=== PATIENT | female | born 1990 | race Caucasian/White ===

== ENCOUNTER 2024-03-31 01:23 | Emergency (ER) | payer BC, SELFPAY ==
[2024-03-31 01:34] VITALS: BP 124/74; PULSE 67; O2SAT 100
[2024-03-31 01:36] VITALS: BP 109/77; PULSE 67; RESP 12; TEMP 36.5; O2SAT 100; BMI 23.1
--- NOTE | 2024-03-31 01:46 | PC.NURSE ---
Pt a&ox2, no signs of distress. Pt reports drinking earlier Pt denies head pain family at bedside Pts face cleaned up from dried up blood coming from lip Pt requested and given ice chips Plan of care ongoing
--- NOTE | 2024-03-31 03:08 | ED.ALCOHOL ---
HPI - Alcohol General Chief Complaint: ETOH/Substance Use Stated Complaint: FALL/HEAD STRIKE/ ETOH Time Seen by Provider: 03/31/24 03:02 Source: patient, family and EMS Mode of arrival: EMS Limitations: no limitations History of Present Illness ED Provider: Dr. Rodriguez HPI narrative: Patient is a 33yo female who has not medical problems, she went out tonight and had too much to drink. She started vomiting at home and then rolled out of the bed cutting her lip on the bedpost, she is up to date with her tetanous Related Data Allergies Allergy/AdvReac Type Severity Reaction Status Date / Time Sulfa (Sulfonamide Allergy Unknown Unknown Verified 03/31/24 01:40 Antibiotics) Review of Systems Review of Systems: Yes all other systems are reviewed and are negative Neurologic: Denies Sensory deficit (Neuro) [facility] Social History Social History Alcohol intake: current Smoked in Last 30 Days: Yes Use of substances other than those prescribed or required for medical reasons: Yes Substance Use Type: Marijuana Advance Directives: No Advance Directives Information Provided: Yes Physical Exam ED Vital Signs: Vital Signs - 24 hr 03/31/24 01:36 Temperature 97.7 F Pulse Rate 67 Respiratory Rate 12 Blood Pressure 109/77 Pulse Oximetry 100 Oxygen Delivery Method Room Air BMI result Body Mass Index 23.1 Const Other: intoxicated female General: healthy appearing Nutritional Appearance: average body habitus Orientation/consciousness: oriented to person and patient oriented x3 Limitations: no limitations HENMT Other: left lower lip with ecchymosis and small laceration Head: Yes normal to inspection Ears: external ears normal General nose exam: Normal external nose present Mouth: oropharynx normal Throat: Yes posterior oropharynx normal Eyes General: appearance normal, both eyes and all related structures Neck Neck: Yes normal visual inspection Chest Chest palpation & inspection: normal inspection of the chest Resp Auscultation: clear to auscultation bilaterally Cardio Jugular venous distension: no JVD Rate: regular rate Rhythm: regular rhythm Heart sounds: S1 normal heart sound present and S2 normal heart sound present GI Inspection: Yes normal to inspection Palpation (GI): Soft to palpation, nontender and No hepatosplenomegaly present Auscultation: normal bowel sounds General: Yes no CVA tenderness Back/Spine/Pelvis Back: no CVA tenderness Skin General skin exam: no rashes or lesions noted Neuro General: oriented to person and patient oriented x3 Cranial nerves: Yes CN's II-XII intact bilaterally Motor exam (neuro): 5/5 motor strength present throughout Sensory Exam: No Sensory deficit (Neuro) Extrem General: Yes normal to inspection Psych Appearance: grossly normal Course Reevaluation(s) Reevaluation #1: intoxicated, lip ecchymosis, laceration. Laceration is small on the mucosal surface will not suture. Time: 03:12 Medical Decision Making Differential Diagnosis Differential Diagnoses: The differential diagnosis associated with the presentation includes (alcohol intoxication, lip laceration, lip ecchymosis, head injury) Independent Historian Clinical information obtained from an independent historian. History obtained from or confirmed by: Spouse Tests considered The following testing was considered but not selected: CT of brain and cervical spine: patient looking well alert and oriented but still intoxicated, injury minor Discharge Plan Discharge Clinical Impression: Alcoholic intoxication, Laceration of lip Patient Disposition: Home, Self-Care Instructions: Alcohol Intoxication (ED), Abuse of Alcohol (ED), Laceration Without Closure (ED), Facial Laceration (ED) Additional Instructions: salt water gargles 4 times a day for 5 days Referrals: Physician,Unknown J [Primary Care Provider] - 3 days Print Language: Lithuanian
[2024-03-31 03:25] VITALS: BP 109/77; PULSE 67; RESP 12; TEMP 36.5
== END 2024-03-31 03:27 | disposition home or self-care (01) ==
PROVIDERS: Emergency Provider Emergency Medicine
DX: S01.511A Laceration without foreign body of lip, initial encounter (principal); W06.XXXA Fall from bed, initial encounter; Y93.9 Activity, unspecified; Y92.9 Unspecified place or not applicable; Y99.9 Unspecified external cause status; R11.10 Vomiting, unspecified; F10.129 Alcohol abuse with intoxication, unspecified
CPT/HCPCS: 99283; 99284